=== PATIENT | male | born 1965 | race Caucasian/White ===

== ENCOUNTER 2017-09-18 12:59 | Emergency (ER) | payer MEDICARE ==
[2017-09-18 13:30] VITALS: BP 138/88
[2017-09-18] MEDS ORDERED: Ketorolac 60 MG/2 ML SDV IM ONE (13:57)
--- NOTE | 2017-09-18 14:01 | EDM.PDOC ---
ED HPI GENERAL MEDICAL PROBLEM - General Chief Complaint: ENT Problem Stated Complaint: ABCESS TOOTH Time Seen by Provider: 09/18/17 13:50 Source of Information: Reports: Patient, Family, RN Notes Reviewed History Limitations: Reports: No Limitations - History of Present Illness INITIAL COMMENTS - FREE TEXT/NARRATIVE: 51-year-old gentleman presents to the emergency department today with complaint of dental pain, he does have a broken tooth lower jaw left side which has increased pain over the last 24 hours he is not had any fever and he has had increased and facial swelling toothe Pain Score (Numeric/FACES): 10 - Related Data Allergies Allergy/AdvReac Type Severity Reaction Status Date / Time acetaminophen [From Percocet] Allergy Difficulty Verified 09/18/17 13:30 Breathing bacitracin Allergy Hives Verified 09/18/17 13:30 meperidine HCl [From Demerol] Allergy Difficulty Verified 09/18/17 13:30 Breathing methylprednisolone sodium Allergy Hives Verified 09/18/17 13:30 succinate [From Solu-Medrol] morphine Allergy Difficulty Verified 09/18/17 13:30 Breathing oxycodone HCl [From Percocet] Allergy Difficulty Verified 09/18/17 13:30 Breathing prednisone Allergy Hives Verified 09/18/17 13:30 Home Meds: Home Meds Amoxicillin 500 mg PO BID 09/18/17 [History] Past Medical History Gastrointestinal History: Reports: Other (See Below) Other Gastrointestinal History: esophageal bleed. - Past Surgical History HEENT Surgical History: Reports: Oral Surgery GI Surgical History: Reports: Appendectomy, Cholecystectomy, Esophageal Dilatation Musculoskeletal Surgical History: Reports: Carpal Tunnel Social & Family History - Tobacco Use Smoking Status *Q: Current Every Day Smoker Years of Tobacco use: 30 Packs/Tins Daily: 1 - Caffeine Use Caffeine Use: Reports: Coffee - Recreational Drug Use Recreational Drug Use: No Drug Use in Last 12 Months: Yes Recreational Drug Type: Reports: Marijuana/Hashish Recreational Drug Use Frequency: Weekly ED ROS ENT - Review of Systems Review Of Systems: See Below Constitutional: Denies: Fever, Chills HEENT: Reports: Dental Pain Respiratory: Reports: No Symptoms Cardiovascular: Reports: No Symptoms GI/Abdominal: Reports: No Symptoms ED EXAM, ENT - Physical Exam Exam: See Below Text/Narrative:: Mouth mucosa is moist and pink tooth #23 is fractured and broken very tender to the touch he does have some edema in the face in the gumline in that area, neck is supple no thyromegaly no tracheal deviation Exam Limited By: No Limitations General Appearance: Alert, Mild Distress Respiratory/Chest: No Respiratory Distress Course - Vital Signs Last Recorded V/S: Last Vital Signs Temp 96.3 F 09/18/17 13:31 Pulse 110 H 09/18/17 13:31 Resp 16 09/18/17 13:31 BP 138/88 09/18/17 13:31 Pulse Ox 95 09/18/17 13:31 - Orders/Labs/Meds Orders: Active Orders 24 hr Category Date Time Status Ketorolac [Toradol] Med 09/18/17 13:57 Once 60 mg IM ONETIME ONE Departure - Departure Time of Disposition: 14:00 Disposition: Home, Self-Care 01 Condition: Good Clinical Impression: Dental caries extending into dentin, Dental abscess - Discharge Information Referrals: Finesse Amos, GREENHOUSE ASSISTANT [Primary Care Provider] - Additional Instructions: Take full course of antibiotics please report to the dental clinic tomorrow morning at 8:15 use ibuprofen as needed for pain control - My Orders Last 24 Hours: My Active Orders 09/18/17 13:57 Ketorolac [Toradol] 60 mg IM ONETIME ONE - Assessment/Plan Last 24 Hours: My Active Orders 09/18/17 13:57 Ketorolac [Toradol] 60 mg IM ONETIME ONE Plan: Assessment Acuity = acute Site and laterality = dental abscess tooth #23 Etiology = probable bacterial cause Manifestations = pain Location of injury = Home Lab values = none Plan Started on amoxicillin 500 mg by mouth 3 times a day for 10 days, set up for dental referral on Tuesday at 8:15, provided Toradol for pain This note was dictated using [employer] recognition software please call with any questions on syntax or pedro.
== END 2017-09-18 14:15 | disposition home or self-care (01) ==
LOC: JP.ED 12:59
DX: K02.9 Dental caries, unspecified (principal); K04.7 Periapical abscess without sinus; F17.210 Nicotine dependence, cigarettes, uncomplicated; Z88.8 Allergy status to other drugs, medicaments and biological substances; Z88.5 Allergy status to narcotic agent; Z90.49 Acquired absence of other specified parts of digestive tract
CPT/HCPCS: 96372; 99282; 99283; J1885

== ENCOUNTER 2017-09-18 19:33 | Emergency (ER) | payer MEDICARE ==
[2017-09-18 19:56] VITALS: BP 142/93
[2017-09-18] MEDS ORDERED: Bupivacaine 0.5%/EPINEPHrine 1:200,000 1.8 ML Cartridge INJECT ONE ×2 (20:05→20:24)
--- NOTE | 2017-09-18 20:07 | EDM.PDOC ---
ED HPI GENERAL MEDICAL PROBLEM - General Chief Complaint: ENT Problem Stated Complaint: LEFT BOTTOM TOOTH PAIN Time Seen by Provider: 09/18/17 20:05 Source of Information: Reports: Patient, Old Records, RN History Limitations: Reports: No Limitations - History of Present Illness INITIAL COMMENTS - FREE TEXT/NARRATIVE: 51 yo male was here this morning for dental pain and got IM Toradol with OK relief. Since switching to oral Toradol is not getting adequate relief. Has been given a referral to see a dentist tomorrow. Is on antibiotics. No fever. Onset: Gradual Duration: Day(s): Location: Reports: Face Quality: Reports: Ache Severity: Severe Improves with: Reports: None Worsens with: Reports: Eating, Other (time) Context: Reports: Other (dental neglect) Associated Symptoms: Reports: No Other Symptoms Treatments HELIX COIL WINDER: Reports: Other (see below) (Toradol and antibiotics) - Related Data Allergies Allergy/AdvReac Type Severity Reaction Status Date / Time acetaminophen [From Percocet] Allergy Difficulty Verified 09/18/17 19:45 Breathing bacitracin Allergy Hives Verified 09/18/17 19:45 meperidine HCl [From Demerol] Allergy Difficulty Verified 09/18/17 19:45 Breathing methylprednisolone sodium Allergy Hives Verified 09/18/17 19:45 succinate [From Solu-Medrol] morphine Allergy Difficulty Verified 09/18/17 19:45 Breathing oxycodone HCl [From Percocet] Allergy Difficulty Verified 09/18/17 19:45 Breathing prednisone Allergy Hives Verified 09/18/17 19:45 Home Meds: Home Meds Amoxicillin 500 mg PO BID 09/18/17 [History] Past Medical History Gastrointestinal History: Reports: Other (See Below) Other Gastrointestinal History: esophageal bleed. - Past Surgical History HEENT Surgical History: Reports: Oral Surgery GI Surgical History: Reports: Appendectomy, Cholecystectomy, Esophageal Dilatation Musculoskeletal Surgical History: Reports: Carpal Tunnel Social & Family History - Tobacco Use Smoking Status *Q: Current Every Day Smoker Years of Tobacco use: 30 Packs/Tins Daily: 1 - Caffeine Use Caffeine Use: Reports: Coffee - Recreational Drug Use Recreational Drug Use: No Drug Use in Last 12 Months: Yes Recreational Drug Type: Reports: Marijuana/Hashish Recreational Drug Use Frequency: Weekly ED ROS ENT - Review of Systems Review Of Systems: See Below Constitutional: Reports: No Symptoms HEENT: Reports: Dental Pain Respiratory: Reports: No Symptoms Cardiovascular: Reports: No Symptoms GI/Abdominal: Reports: No Symptoms : Reports: No Symptoms Musculoskeletal: Reports: No Symptoms Skin: Reports: No Symptoms Neurological: Reports: No Symptoms ED EXAM, ENT - Physical Exam Exam: See Below Exam Limited By: No Limitations General Appearance: Alert, WD/WN, No Apparent Distress Eye Exam: Bilateral Eye: Normal Inspection Ears: Normal External Exam, Normal Canal, Hearing Grossly Normal Nose: Normal Inspection, Normal Mucousa, No Blood Mouth/Throat: Normal Lips, Normal Oropharynx, Dental Abcess, Dental Pain, Dental Tenderness, Other (very poor oral hygiene) Head: Atraumatic, Normocephalic Neck: Normal Inspection, Supple, Non-Tender Respiratory/Chest: No Respiratory Distress, Lungs Clear, Normal Breath Sounds, No Accessory Muscle Use Cardiovascular: Regular Rate, Rhythm, Tachycardia Extremities: Normal Inspection Neurological: Alert, Oriented, CN II-XII Intact, Normal Cognition, No Motor/ Sensory Deficits Psychiatric: Normal Affect, Normal Mood Skin: Warm, Dry, Intact, Normal Color, No Rash Course - Vital Signs Text/Narrative:: Was given a submandibular nerve block with 1.8 ml of 0.5% bupivacaine with epi- inadequate relief, so another dose was given with local infiltration around the affected tooth. Got better relief with this. Last Recorded V/S: Last Vital Signs Temp 36.8 C 09/18/17 19:55 Pulse 113 H 09/18/17 19:55 Resp 16 09/18/17 19:55 BP 142/93 H 09/18/17 19:55 Pulse Ox 93 L 09/18/17 19:55 - Orders/Labs/Meds Meds: Medications Discontinued Medications Generic Name Dose Route Start Last Admin Trade Name Gustavo PRN Reason Stop Dose Admin Bupivacaine HCl/Epinephrine Bitart 1.8 ml 09/18/17 20:05 09/18/17 20:15 Marcaine 0.5%/Epinephrine 1:200,000 INJECT 09/18/17 20:06 1.8 ml ONETIME ONE Administration Bupivacaine HCl/Epinephrine Bitart 1.8 ml 09/18/17 20:24 Marcaine 0.5%/Epinephrine 1:200,000 INJECT 09/18/17 20:25 ONETIME ONE Departure - Departure Time of Disposition: 20:50 Disposition: Home, Self-Care 01 Condition: Fair Clinical Impression: Dental caries extending into dentin, Dental abscess - Discharge Information Referrals: Finesse Amos OWNER SPA DIRECTOR [Primary Care Provider] - Forms: ED Department Discharge
== END 2017-09-18 21:02 | disposition home or self-care (01) ==
LOC: JP.ED 19:33
DX: K02.9 Dental caries, unspecified (principal); K04.7 Periapical abscess without sinus; F17.210 Nicotine dependence, cigarettes, uncomplicated; Z88.8 Allergy status to other drugs, medicaments and biological substances; Z88.5 Allergy status to narcotic agent; Z90.49 Acquired absence of other specified parts of digestive tract
CPT/HCPCS: 64400; 64450; 99283-25

== ENCOUNTER 2017-09-18 22:21 | Emergency (ER) | payer MEDICARE ==
[2017-09-18 22:38] VITALS: BP 164/113
[2017-09-18] MEDS ORDERED: Bupivacaine 0.5%/EPINEPHrine 1:200,000 1.8 ML Cartridge INJECT ONE (22:55)
[2017-09-18] MEDS ORDERED: Ketorolac 60 MG/2 ML SDV IM ONE (22:55)
[2017-09-18] MEDS ORDERED: hydrOXYzine HCl 25 MG Tab PO ONE (22:56)
--- NOTE | 2017-09-18 23:03 | EDM.PDOC ---
ED HPI GENERAL MEDICAL PROBLEM - General Chief Complaint: ENT Problem Stated Complaint: TOOTH PAIN WORSE Time Seen by Provider: 09/18/17 22:32 Source of Information: Reports: Patient, Family (so) History Limitations: Reports: No Limitations - History of Present Illness INITIAL COMMENTS - FREE TEXT/NARRATIVE: Dental pain; this is a 51 year old male presents to ER for his 3rd visit today with uncontrolled dental pain. He is currently taking Amoxicillin and Motrin. He is requesting a Toradol and dental injection for pain control. Has an appointment at 08:15 am. Onset: Gradual Duration: Day(s):, Waxing/Waning Quality: Reports: Same as Previous Episode, Sharp, Stabbing, Throbbing Improves with: Reports: Medication Worsens with: Reports: None Associated Symptoms: Reports: No Other Symptoms Treatments BLUE CRABBER: Reports: NSAIDS - Related Data Allergies Allergy/AdvReac Type Severity Reaction Status Date / Time acetaminophen [From Percocet] Allergy Difficulty Verified 09/18/17 19:45 Breathing bacitracin Allergy Hives Verified 09/18/17 19:45 meperidine HCl [From Demerol] Allergy Difficulty Verified 09/18/17 19:45 Breathing methylprednisolone sodium Allergy Hives Verified 09/18/17 19:45 succinate [From Solu-Medrol] morphine Allergy Difficulty Verified 09/18/17 19:45 Breathing oxycodone HCl [From Percocet] Allergy Difficulty Verified 09/18/17 19:45 Breathing prednisone Allergy Hives Verified 09/18/17 19:45 Home Meds: Home Meds Amoxicillin 500 mg PO BID 09/18/17 [History] Past Medical History Gastrointestinal History: Reports: Other (See Below) Other Gastrointestinal History: esophageal bleed. - Past Surgical History HEENT Surgical History: Reports: Oral Surgery GI Surgical History: Reports: Appendectomy, Cholecystectomy, Esophageal Dilatation Musculoskeletal Surgical History: Reports: Carpal Tunnel Social & Family History - Tobacco Use Smoking Status *Q: Current Every Day Smoker Years of Tobacco use: 30 Packs/Tins Daily: 1 - Caffeine Use Caffeine Use: Reports: Coffee - Recreational Drug Use Recreational Drug Use: No Drug Use in Last 12 Months: Yes Recreational Drug Type: Reports: Marijuana/Hashish Recreational Drug Use Frequency: Weekly - Living Situation & Occupation Living situation: Reports: with Significant Other ED ROS ENT - Review of Systems Review Of Systems: See Below Constitutional: Reports: Other (acute dental pain) HEENT: Reports: Dental Pain Respiratory: Reports: No Symptoms Cardiovascular: Reports: No Symptoms Endocrine: Reports: No Symptoms Skin: Reports: No Symptoms Neurological: Reports: No Symptoms Psychiatric: Reports: Agitation Hematologic/Lymphatic: Reports: No Symptoms Immunologic: Reports: No Symptoms ED EXAM, ENT - Physical Exam Exam: See Below Exam Limited By: No Limitations General Appearance: Alert, Moderate Distress (holding face in hands, moaning, restless ) Eye Exam: Bilateral Eye: Normal Inspection Ears: Normal External Exam Nose: Normal Inspection Mouth/Throat: Dental Abcess, Dental Pain, Dental Tenderness, Other (severe dental decay of all molars into gum line, gums with erythema, multi missing teeth) Head: Facial Swelling (left chin), Facial Tenderness (left chin) Neck: Normal Inspection, Supple, Non-Tender, Full Range of Motion Respiratory/Chest: No Respiratory Distress Neurological: Alert, Oriented Psychiatric: Anxious (restless, appears to be in acute pain) Skin: Warm, Dry, Intact, Normal Color, No Rash Lymphatic: No Adenopathy Course - Vital Signs Last Recorded V/S: Last Vital Signs Temp 37.0 C 09/18/17 22:55 Pulse 113 H 09/18/17 22:55 Resp 23 H 09/18/17 22:55 BP 164/113 H 09/18/17 22:55 Pulse Ox 94 L 09/18/17 22:55 - Orders/Labs/Meds Meds: Medications Discontinued Medications Generic Name Dose Route Start Last Admin Trade Name Gustavo PRN Reason Stop Dose Admin Bupivacaine HCl/Epinephrine Bitart 1.8 ml 09/18/17 22:55 09/18/17 23:03 Marcaine 0.5%/Epinephrine 1:200,000 INJECT 09/18/17 22:56 1.8 ml ONETIME ONE Administration Hydroxyzine HCl 25 mg 09/18/17 22:56 09/18/17 23:03 Atarax PO 09/18/17 22:57 25 mg ONETIME ONE Administration Ketorolac Tromethamine 60 mg 09/18/17 22:55 09/18/17 23:03 Toradol IM 09/18/17 22:56 60 mg ONETIME ONE Administration - Re-Assessments/Exams Free Text/Narrative Re-Assessment/Exam: 09/18/17 Dental Block -given Bupivacaine 0.5%/Eppi 1:200,000 1.8ml , left lower gum -immediate relief of pain. Patient appears calm and relaxed. Toradol 60mg IM and Hydroxyzine 25mg po now Mr. Bass's pain is controlled, ready for discharge to home, will follow up with Departure - Departure Time of Disposition: 23:26 Disposition: Home, Self-Care 01 Condition: Good Clinical Impression: Dental caries extending into dentin - Discharge Information Referrals: PCP,None [Primary Care Provider] - Forms: ED Department Discharge Care Plan Goals: Dental Pain -take Motrin 600mg every 6 hours, next dose due at 0500 am -keep Dental appointment at 08:15 AM -Soft diet, avoid hot or cold liquids. room temperatures food and fluids. return to clinic or er if not improved or symptoms worsen. - Problem List & Annotations (1) Dental caries extending into dentin SNOMED Code(s): 132196520 Code(s): K02.62 - DENTAL CARIES ON SMOOTH SURFACE PENETRATING INTO DENTIN Status: Acute Priority: Medium Current Visit: Yes - Problem List Review Problem List Initiated/Reviewed/Updated: Yes - Assessment/Plan Plan: Dental Pain -take Motrin 600mg every 6 hours, next dose due at 0500 am -keep Dental appointment at 08:15 AM -Soft diet, avoid hot or cold liquids. room temperatures food and fluids. return to clinic or er if not improved or symptoms worsen.
== END 2017-09-18 23:29 | disposition home or self-care (01) ==
LOC: JP.ED 22:21
DX: K02.9 Dental caries, unspecified (principal); F17.210 Nicotine dependence, cigarettes, uncomplicated; Z88.8 Allergy status to other drugs, medicaments and biological substances; Z90.49 Acquired absence of other specified parts of digestive tract
CPT/HCPCS: 64400; 64450; 96372; 99282; 99283; A9270; J1885

== ENCOUNTER 2018-07-12 14:42 | Emergency (ER) | payer MEDICARE, MEDICAID ==
[2018-07-12 15:02] VITALS: BP 137/91
[2018-07-12] MEDS ORDERED: Albuterol/Ipratropium 3.0-0.5 MG/3 ML Neb Soln NEB ONE (15:42)
--- NOTE | 2018-07-12 15:44 | EDM.PDOC ---
<Amanda Flores - Last Filed: 07/12/18 18:08> ED HPI GENERAL MEDICAL PROBLEM - General Chief Complaint: Respiratory Problem Stated Complaint: BREATHING DIFFICULTY Time Seen by Provider: 07/12/18 15:43 Source of Information: Reports: Patient History Limitations: Reports: No Limitations - History of Present Illness INITIAL COMMENTS - FREE TEXT/NARRATIVE: pt has a history of copd. He has had increased sob during thr nite to the point that he could not rest. Onset: Gradual Duration: Day(s):, Other ( He was seen yesterday at the clinic and he was placed on doxycyline. ) Location: Reports: Chest Associated Symptoms: Reports: Cough, Shortness of Breath - Related Data Allergies Allergy/AdvReac Type Severity Reaction Status Date / Time acetaminophen [From Percocet] Allergy Difficulty Verified 09/18/17 19:45 Breathing bacitracin Allergy Hives Verified 09/18/17 19:45 meperidine HCl [From Demerol] Allergy Difficulty Verified 09/18/17 19:45 Breathing methylprednisolone sodium Allergy Hives Verified 09/18/17 19:45 succinate [From Solu-Medrol] morphine Allergy Difficulty Verified 09/18/17 19:45 Breathing oxycodone HCl [From Percocet] Allergy Difficulty Verified 09/18/17 19:45 Breathing prednisone Allergy Hives Verified 09/18/17 19:45 Home Meds: Home Meds Albuterol [Ventolin HFA] 1 - 2 puff INH Q4H PRN 07/12/18 [History] Doxycycline Monohydrate 100 mg PO BID 07/12/18 [History] Tiotropium [Spiriva Handihaler] 18 mcg INH DAILY 07/12/18 [History] Past Medical History HEENT History: Reports: Other (See Below) Other HEENT History: dental caries Respiratory History: Reports: COPD Gastrointestinal History: Reports: Other (See Below) Other Gastrointestinal History: esophageal bleed. - Infectious Disease History Infectious Disease History: Reports: Chicken Pox - Past Surgical History HEENT Surgical History: Reports: Oral Surgery GI Surgical History: Reports: Appendectomy, Cholecystectomy, Esophageal Dilatation Musculoskeletal Surgical History: Reports: Carpal Tunnel Social & Family History - Tobacco Use Years of Tobacco use: 32 Packs/Tins Daily: 0.1 - Caffeine Use Caffeine Use: Reports: Coffee - Recreational Drug Use Recreational Drug Use: No - Living Situation & Occupation Living situation: Reports: with Significant Other ED ROS GENERAL - Review of Systems Review Of Systems: See Below Constitutional: Reports: Decreased Appetite, Weight Loss HEENT: Reports: No Symptoms Respiratory: Reports: Shortness of Breath, Wheezing, Cough, Other (pt continues to smoke a few cigarettes per day) Cardiovascular: Reports: No Symptoms Endocrine: Reports: No Symptoms GI/Abdominal: Reports: No Symptoms : Reports: No Symptoms Musculoskeletal: Reports: No Symptoms Skin: Reports: No Symptoms ED EXAM, GENERAL - Physical Exam Exam: See Below Free Text/Narrative:: pt arrived with increased sob. He has had a very difficult nite. He has a history of copd. He has been placed on doxycyline yesterday. He is allergic to steriods. Exam Limited By: No Limitations General Appearance: Alert, Moderate Distress Ears: Normal TMs Nose: Normal Inspection Throat/Mouth: Normal Inspection Head: Atraumatic Neck: Normal Inspection Respiratory/Chest: Respiratory Distress, Decreased Breath Sounds, Wheezing Cardiovascular: Regular Rate, Rhythm, Tachycardia GI/Abdominal: Soft, Non-Tender (Male) Exam: Deferred Rectal (Males) Exam: Deferred Back Exam: Normal Inspection Extremities: Normal Inspection Neurological: Alert, Normal Cognition Psychiatric: Depressed Mood Course - Vital Signs Last Recorded V/S: Last Vital Signs Temp 96.5 F 07/12/18 15:11 Pulse 121 H 07/12/18 15:11 Resp 16 07/12/18 15:11 BP 137/91 H 07/12/18 15:11 Pulse Ox 94 L 07/12/18 15:11 - Orders/Labs/Meds Orders: Active Orders 24 hr Category Date Time Status Dietary Supplements [RC] BIDMEALS Care 07/12/18 18:07 Active RT Aerosol Therapy [RC] ASDIRECTED Care 07/12/18 15:42 Active RT Aerosol Therapy [RC] ASDIRECTED Care 07/12/18 17:23 Active RT Aerosol Therapy [RC] ASDIRECTED Care 07/12/18 18:10 Active Chest 2V [CR] Stat Exams 07/12/18 15:41 Taken Chest w Cont [CT] Stat Exams 07/12/18 16:45 Taken Labs: Laboratory Tests 07/12/18 07/12/18 07/12/18 Range/Units 15:41 15:42 15:42 WBC 11.0 (4.5-11.0) K/uL RBC 4.91 (4.30-5.90) M/uL Hgb 14.4 (12.0-15.0) g/dL Hct 44.4 (40.0-54.0) % MCV 90 (80-98) fL MCH 29 (27-31) pg MCHC 32 (32-36) % Plt Count 407 H (150-400) K/uL Neut % (Auto) 64 (36-66) % Lymph % (Auto) 21 L (24-44) % Bullock % (Auto) 10 H (2-6) % Eos % (Auto) 5 H (2-4) % Baso % (Auto) 1 (0-1) % Puncture Site Left radial ABG pH 7.463 H (7.350-7.450) ABG pCO2 36.7 (35.0-42.0) mmHg ABG pO2 74.6 L (75.0-100.0) mmHg ABG HCO3 25.9 (22.0-26.0) mmol/L ABG Total CO2 22.3 L (23.0-27.0) mmol/L ABG O2 Saturation 95.2 (95.0-98.0) % ABG O2 Content 19.2 (15.0-23.0) %vol ABG Base Excess 2.7 mm/L ABG Hemoglobin 14.6 (13.5-18.0) g/dL ABG Oxyhemoglobin 93.4 % ABG Carboxyhemoglobin 1.4 (0.0-1.6) % ABG Methemoglobin 0.5 % Yaron Test Passed O2 Delivery Device Room air Sodium 139 L (140-148) mmol/L Potassium 3.9 (3.6-5.2) mmol/L Chloride 101 (100-108) mmol/L Carbon Dioxide 30 (21-32) mmol/L Anion Gap 11.9 (5.0-14.0) mmol/L BUN 16 (7-18) mg/dL Creatinine 0.9 (0.8-1.3) mg/dL Est Cr Clr Drug Dosing 69.94 mL/min Estimated GFR (MDRD) > 60 (>60) Glucose 91 (74-106) mg/dL Calcium 9.1 (8.5-10.1) mg/dL Total Bilirubin 0.2 (0.2-1.0) mg/dL AST 14 L (15-37) U/L ALT 19 (12-78) U/L Alkaline Phosphatase 117 H (46-116) U/L C-Reactive Protein (0.0-0.3) mg/dL NT-Pro-B Natriuret Pep (5-125) pg/mL Total Protein 7.7 (6.4-8.2) g/dL Albumin 3.3 L (3.4-5.0) g/dL Globulin 4.4 H (2.3-3.5) g/dL Albumin/Globulin Ratio 0.8 L (1.2-2.2) TSH, Ultra Sensitive (0.358-3.740) uIU/mL 07/12/18 07/12/18 07/12/18 Range/Units 15:42 15:56 16:02 WBC (4.5-11.0) K/uL RBC (4.30-5.90) M/uL Hgb (12.0-15.0) g/dL Hct (40.0-54.0) % MCV (80-98) fL MCH (27-31) pg MCHC (32-36) % Plt Count (150-400) K/uL Neut % (Auto) (36-66) % Lymph % (Auto) (24-44) % Bullock % (Auto) (2-6) % Eos % (Auto) (2-4) % Baso % (Auto) (0-1) % Puncture Site ABG pH (7.350-7.450) ABG pCO2 (35.0-42.0) mmHg ABG pO2 (75.0-100.0) mmHg ABG HCO3 (22.0-26.0) mmol/L ABG Total CO2 (23.0-27.0) mmol/L ABG O2 Saturation (95.0-98.0) % ABG O2 Content (15.0-23.0) %vol ABG Base Excess mm/L ABG Hemoglobin (13.5-18.0) g/dL ABG Oxyhemoglobin % ABG Carboxyhemoglobin (0.0-1.6) % ABG Methemoglobin % Yaron Test O2 Delivery Device Sodium (140-148) mmol/L Potassium (3.6-5.2) mmol/L Chloride (100-108) mmol/L Carbon Dioxide (21-32) mmol/L Anion Gap (5.0-14.0) mmol/L BUN (7-18) mg/dL Creatinine (0.8-1.3) mg/dL Est Cr Clr Drug Dosing mL/min Estimated GFR (MDRD) (>60) Glucose (74-106) mg/dL Calcium (8.5-10.1) mg/dL Total Bilirubin (0.2-1.0) mg/dL AST (15-37) U/L ALT (12-78) U/L Alkaline Phosphatase (46-116) U/L C-Reactive Protein 2.49 H (0.0-0.3) mg/dL NT-Pro-B Natriuret Pep 36 (5-125) pg/mL Total Protein (6.4-8.2) g/dL Albumin (3.4-5.0) g/dL Globulin (2.3-3.5) g/dL Albumin/Globulin Ratio (1.2-2.2) TSH, Ultra Sensitive 0.664 (0.358-3.740) uIU/mL Meds: Medications Discontinued Medications Generic Name Dose Route Start Last Admin Trade Name Freq PRN Reason Stop Dose Admin Albuterol 2.5 mg 07/12/18 17:23 07/12/18 17:37 Proventil [facility] 07/12/18 17:24 2.5 mg ONETIME ONE Administration Albuterol 2.5 mg 07/12/18 18:09 07/12/18 18:41 Proventil [facility] 07/12/18 18:10 2.5 mg ONETIME ONE Administration Albuterol/Ipratropium 3 ml 07/12/18 15:42 07/12/18 15:49 Duoneb 3.0-0.5 Mg/3 Ml [facility] 07/12/18 15:43 3 ml ONETIME ONE Administration Sodium Chloride 80 mls @ 3 mls/sec 07/12/18 17:00 07/12/18 17:08 Normal Saline IV 3 mls/sec ASDIRECTED JAIRO Administration Ceftriaxone Sodium 1 gm/ 50 mls @ 100 mls/hr 07/12/18 18:06 07/12/18 18:17 Sodium Chloride IV 07/12/18 18:35 100 mls/hr ONETIME ONE Administration Iopamidol 100 ml 07/12/18 17:00 07/12/18 17:08 Isovue-300 (61%) IV 100 ml . DIRECTED JAIRO Administration Sodium Chloride 10 ml 07/12/18 16:50 07/12/18 17:08 Saline Flush FLUSH 10 ml ASDIRECTED PRN Administration Keep Vein Open - Re-Assessments/Exams Free Text/Narrative Re-Assessment/Exam: 07/12/18 17:42 wbc is 11,000. His crp is elevated. His blood gases do not show a high co2. His 02 is low. A cat scan of th chest was done. Free Text/Narrative Re-Assessment/Exam: 07/12/18 18:08 cat scan shows some nodular densities which may be infectious. Will give iv antibiotic. He has had 2 nebs and he is improving. Departure - Departure Disposition: Home, Self-Care 01 Clinical Impression: Pneumonia Qualifiers: Pneumonia type: due to unspecified organism Laterality: right Lung location: lower lobe of lung Qualified Code(s): J18.1 - Lobar pneumonia, unspecified organism - Discharge Information Instructions: Community-Acquired Pneumonia, Adult Referrals: Finesse Amos, HOTEL MAINTENANCE WORKER [Primary Care Provider] - Forms: ED Department Discharge Care Plan Goals: albuterol nebs q4h during the waking hours, send a nebulizer home with the pt. albuterol premixed , cont doxycyline, follow up with Finesse Hammer in 3-4 days, return tomorrow for another IV antibiotic dose as discussed. <Stanislav Coughlin - Last Filed: 07/12/18 19:01> Departure - Departure Time of Disposition: 18:58 Condition: Good
[2018-07-12] MEDS ORDERED: Sodium Chloride 0.9% 10 ML Syringe FLUSH PRN (16:50)
[2018-07-12] MEDS ORDERED: Sodium Chloride 0.9% 80 ML IV SCH (17:00)
[2018-07-12] MEDS ORDERED: Iopamidol 612 MG/ML 100 ML Bottle IV SCH (17:00)
[2018-07-12] MEDS ORDERED: Albuterol 0.083% 2.5 MG/3 ML Neb Soln NEB ONE ×2 (17:23→18:09)
[2018-07-12] MEDS ORDERED: cefTRIAXone 1 GM in Sodium Chloride 0.9% 50 ML IV ONE (18:06)
== END 2018-07-12 18:58 | disposition home or self-care (01) ==
LOC: JP.ED 14:42
DX: J18.1 Lobar pneumonia, unspecified organism (principal); F17.210 Nicotine dependence, cigarettes, uncomplicated; J44.9 Chronic obstructive pulmonary disease, unspecified; Z79.899 Other long term (current) drug therapy; Z88.6 Allergy status to analgesic agent; Z88.8 Allergy status to other drugs, medicaments and biological substances; Z88.1 Allergy status to other antibiotic agents; Z88.5 Allergy status to narcotic agent
CPT/HCPCS: 36415; 36600; 71046; 71260; 80053; 82803; 83880; 84443; 85025; 86140; 94640; 96365; 99285; J0696; J7030; J7050; Q9967; J7620-GY

== ENCOUNTER 2018-10-28 13:06 | Emergency (ER) | payer MEDICARE, MEDICAID ==
[2018-10-28 13:28] VITALS: BP 138/75
--- NOTE | 2018-10-28 13:54 | EDM.PDOC ---
ED HPI GENERAL MEDICAL PROBLEM - General Chief Complaint: Abdominal Pain Stated Complaint: BACK & LEFT LUNG PAIN Time Seen by Provider: 10/28/18 13:35 Source of Information: Reports: Patient, Old Records, RN History Limitations: Reports: No Limitations - History of Present Illness INITIAL COMMENTS - FREE TEXT/NARRATIVE: 52 yo male smoker was here in June and had an abnormal chest CT was was instructed to follow up at the clinic. He eventually did so and now has a PET scan scheduled to be performed in [place] on 10/31. More recently over the past week he has not had a BM even with the use of Dulcolax and has had intermittent vomiting. No black or bloody stools. No fever. No hematemesis. Has experienced weight loss. Has some epigastric pain. Onset: Gradual Onset Date: 10/21/18 Duration: Week(s): (1), Constant, Waxing/Waning Location: Reports: Abdomen (upper) Quality: Reports: Ache Severity: Moderate Improves with: Reports: None Worsens with: Reports: Other (time) Context: Reports: Other (See HPI) Associated Symptoms: Reports: Nausea/Vomiting. Denies: Fever/Chills Treatments [employer] WORKER: Reports: Other (see below) (Dulcolax) - Related Data Allergies Allergy/AdvReac Type Severity Reaction Status Date / Time acetaminophen [From Percocet] Allergy Difficulty Verified 10/28/18 13:36 Breathing bacitracin Allergy Hives Verified 10/28/18 13:36 meperidine HCl [From Demerol] Allergy Difficulty Verified 10/28/18 13:36 Breathing methylprednisolone sodium Allergy Hives Verified 10/28/18 13:36 succinate [From Solu-Medrol] morphine Allergy Difficulty Verified 10/28/18 13:36 Breathing oxycodone HCl [From Percocet] Allergy Difficulty Verified 10/28/18 13:36 Breathing prednisone Allergy Hives Verified 10/28/18 13:36 Home Meds: Home Meds Albuterol [Ventolin HFA] 1 - 2 puff INH Q4H PRN 07/12/18 [History] Tiotropium [Spiriva Handihaler] 18 mcg INH DAILY 07/12/18 [History] Cyclobenzaprine [Flexeril] 10 mg PO BID 10/28/18 [History] Past Medical History HEENT History: Reports: Other (See Below) Other HEENT History: dental caries Respiratory History: Reports: COPD Gastrointestinal History: Reports: Other (See Below) Other Gastrointestinal History: esophageal bleed. - Infectious Disease History Infectious Disease History: Reports: Chicken Pox - Past Surgical History HEENT Surgical History: Reports: Oral Surgery GI Surgical History: Reports: Appendectomy, Cholecystectomy, Esophageal Dilatation Musculoskeletal Surgical History: Reports: Carpal Tunnel Social & Family History - Tobacco Use Smoking Status *Q: Current Every Day Smoker Years of Tobacco use: 30 Packs/Tins Daily: 0.1 - Caffeine Use Caffeine Use: Reports: Coffee - Recreational Drug Use Recreational Drug Use: No - Living Situation & Occupation Living situation: Reports: with Significant Other ED ROS GENERAL - Review of Systems Review Of Systems: See Below Constitutional: Reports: No Symptoms HEENT: Reports: No Symptoms Respiratory: Reports: Pleuritic Chest Pain. Denies: Shortness of Breath, Wheezing, Cough, Sputum, Hemoptysis Cardiovascular: Reports: No Symptoms Endocrine: Reports: Other (weight loss) GI/Abdominal: Reports: Abdominal Pain, Nausea, Vomiting. Denies: No Symptoms, Black Stool, Bloody Stool, Diarrhea, Decreased Appetite, Distension, Flatus, Hematemesis, Hematochezia, Melena : Reports: No Symptoms Musculoskeletal: Reports: No Symptoms Skin: Reports: No Symptoms Neurological: Reports: No Symptoms Psychiatric: Reports: No Symptoms ED EXAM, GI/ABD - Physical Exam Exam: See Below Exam Limited By: No Limitations General Appearance: Alert, No Apparent Distress, Thin Eyes: Bilateral: Normal Appearance Ears: Normal External Exam, Normal Canal, Hearing Grossly Normal Nose: Normal Inspection, No Blood Throat/Mouth: Normal Inspection, Normal Lips, Normal Oropharynx, Normal Voice, No Airway Compromise Head: Atraumatic, Normocephalic Neck: Normal Inspection Respiratory/Chest: No Respiratory Distress, Lungs Clear, Normal Breath Sounds, No Accessory Muscle Use Cardiovascular: Regular Rate, Rhythm, No Edema GI/Abdominal Exam: Normal Bowel Sounds, Soft, No Distention, Tender (epigastric area). No: Non-Tender, Guarding, Rigid, Rebound Back Exam: Normal Inspection. No: CVA Tenderness (R), CVA Tenderness (L) Extremities: Normal Inspection, Normal Range of Motion, Non-Tender, No Pedal Edema Neurological: Alert, Oriented, CN II-XII Intact, Normal Cognition, No Motor/ Sensory Deficits Psychiatric: Normal Affect, Normal Mood Skin Exam: Warm, Dry, Intact, Normal Color, No Rash Course - Vital Signs Text/Narrative:: Orthostatic vitals-borderline Last Recorded V/S: Last Vital Signs Temp 35.7 C 10/28/18 13:35 Pulse 95 10/28/18 13:35 Resp 21 H 10/28/18 13:35 BP 138/75 10/28/18 13:35 Pulse Ox 95 10/28/18 13:35 Orthostatic Blood Pressure [ 117/76 Standing] Orthostatic Blood Pressure [ 124/88 Sitting] Orthostatic Blood Pressure [ 138/86 Supine] - Orders/Labs/Meds Orders: Active Orders 24 hr Category Date Time Status Enema [RC] ASDIRECTED Care 10/28/18 14:29 Active Orthostatic Vital Signs [RC] ASDIRECTED Care 10/28/18 13:48 Active Labs: Laboratory Tests 10/28/18 Range/Units 14:39 Sodium 137 L (140-148) mmol/L Potassium 4.2 (3.6-5.2) mmol/L Chloride 97 L (100-108) mmol/L Carbon Dioxide 32 (21-32) mmol/L Anion Gap 12.2 (5.0-14.0) mmol/L BUN 15 (7-18) mg/dL Creatinine 1.0 (0.8-1.3) mg/dL Est Cr Clr Drug Dosing 61.04 mL/min Estimated GFR (MDRD) > 60 (>60) Glucose 103 (74-106) mg/dL Calcium 9.3 (8.5-10.1) mg/dL Total Bilirubin 0.1 L (0.2-1.0) mg/dL AST 17 (15-37) U/L ALT 23 (12-78) U/L Alkaline Phosphatase 133 H (46-116) U/L Total Protein 7.9 (6.4-8.2) g/dL Albumin 3.1 L (3.4-5.0) g/dL Globulin 4.8 H (2.3-3.5) g/dL Albumin/Globulin Ratio 0.7 L (1.2-2.2) Meds: Medications Discontinued Medications Generic Name Dose Route Start Last Admin Trade Name Freq PRN Reason Stop Dose Admin Lactated Ringer's 1,000 mls @ 1,000 mls/hr 10/28/18 14:28 10/28/18 14:47 Ringers, Lactated IV 10/28/18 15:27 1,000 mls/hr BOLUS ONE Administration Metoclopramide HCl 10 mg 10/28/18 14:28 10/28/18 14:47 Reglan IVPUSH 10/28/18 14:29 10 mg ONETIME ONE Administration Polyethylene Glycol 34 gm 10/28/18 14:28 10/28/18 14:47 Miralax PO 10/28/18 14:29 34 gm ONETIME ONE Administration - Radiology Interpretation Free Text/Narrative:: Abdominal X-ray-large amt of stool present - Re-Assessments/Exams Free Text/Narrative Re-Assessment/Exam: 10/28/18 16:30 Good relief and good results with enemas. Departure - Departure Time of Disposition: 16:31 Disposition: Home, Self-Care 01 Condition: Good Clinical Impression: Constipation Qualifiers: Constipation type: unspecified constipation type Qualified Code(s): K59.00 - Constipation, unspecified - Discharge Information *PRESCRIPTION DRUG MONITORING PROGRAM REVIEWED*: No *COPY OF PRESCRIPTION DRUG MONITORING REPORT IN PATIENT NELLY: No Instructions: Constipation, Adult, High-Fiber Diet Referrals: Finesse Amos NP [Primary Care Provider] - Forms: ED Department Discharge Additional Instructions: Eat a high fiber diet and drink ample fluids. Take Miralax(generic) once or twice daily. F/U with your doctor to continue your work up. - My Orders Last 24 Hours: My Active Orders 10/28/18 13:48 Orthostatic Vital Signs [RC] ASDIRECTED 10/28/18 14:29 Enema [RC] ASDIRECTED - Assessment/Plan Last 24 Hours: My Active Orders 10/28/18 13:48 Orthostatic Vital Signs [RC] ASDIRECTED 10/28/18 14:29 Enema [RC] ASDIRECTED
[2018-10-28] MEDS ORDERED: Polyethylene Glycol 3350 Powder 17 GM Packet PO ONE (14:28)
[2018-10-28] MEDS ORDERED: Metoclopramide 10 MG/2 ML SDV IVPUSH ONE (14:28)
[2018-10-28] MEDS ORDERED: Lactated Ringers 1,000 ML IV ONE (14:28)
--- NOTE | 2018-10-28 15:56 | CRLCR ---
INDICATION: Vomiting, constipation TECHNIQUE: Portable supine frontal radiograph of the abdomen COMPARISON: None FINDINGS AND IMPRESSION: Nonobstructive bowel gas pattern. There is a moderate amount of stool throughout the colon. Right upper quadrant surgical clips. Dictated by Eden Gallego MD @ 10/28/2018 3:54:41 PM Dictated by: Eden Gallego MD @ 10/28/2018 15:54:49 (Electronically Signed)
== END 2018-10-28 16:43 | disposition home or self-care (01) ==
LOC: JP.ED 13:06
DX: K59.00 Constipation, unspecified (principal); J44.9 Chronic obstructive pulmonary disease, unspecified; F17.210 Nicotine dependence, cigarettes, uncomplicated; Z88.8 Allergy status to other drugs, medicaments and biological substances; Z79.899 Other long term (current) drug therapy
CPT/HCPCS: 36415; 74018; 80053; 96361; 96374; 99283; A9270; J2765; J7120; 99284

== ENCOUNTER 2018-11-18 19:32 | Emergency (ER) | payer MEDICARE, MEDICAID ==
[2018-11-18] MEDS ORDERED: HYDROmorphone 1 MG/ML Syringe IVPUSH ONE ×2 (20:40→21:16)
[2018-11-18] MEDS ORDERED: Ondansetron 4 MG/2 ML SDV IVPUSH ONE (20:40)
[2018-11-18] MEDS ORDERED: Sodium Chloride 0.9% 1,000 ML IV SCH (20:45)
--- NOTE | 2018-11-18 21:17 | EDM.PDOC ---
ED HPI GENERAL MEDICAL PROBLEM - General Chief Complaint: Abdominal Pain Stated Complaint: ABD PAIN Time Seen by Provider: 11/18/18 20:15 Source of Information: Reports: Patient History Limitations: Reports: No Limitations - History of Present Illness INITIAL COMMENTS - FREE TEXT/NARRATIVE: 52 yo presents to ER with upper ABD pain. He recently had PET scan at [facility] resulting in Dx of likely primary lung malignancy 2.6 cm right lower lobe and a 6 cm mass in the gastrohepatic ligament. He does have lung mass biopsy scheduled for latter this month. He has been unable to eat because of pain. HE has had intermittent diarrhea and constipation. afebrile. He feels that his SOB has been controlled. Abdominal Pain Score (Numeric/FACES): 8 - Related Data Allergies Allergy/AdvReac Type Severity Reaction Status Date / Time acetaminophen [From Percocet] Allergy Difficulty Verified 11/18/18 19:56 Breathing bacitracin Allergy Hives Verified 11/18/18 19:56 meperidine HCl [From Demerol] Allergy Difficulty Verified 11/18/18 19:56 Breathing methylprednisolone sodium Allergy Hives Verified 11/18/18 19:56 succinate [From Solu-Medrol] morphine Allergy Difficulty Verified 11/18/18 19:56 Breathing oxycodone HCl [From Percocet] Allergy Difficulty Verified 11/18/18 19:56 Breathing prednisone Allergy Hives Verified 11/18/18 19:56 Home Meds: Home Meds Albuterol [Ventolin HFA] 1 - 2 puff INH Q4H PRN 07/12/18 [History] Tiotropium [Spiriva Handihaler] 18 mcg INH DAILY 07/12/18 [History] Cyclobenzaprine [Flexeril] 10 mg PO BID 10/28/18 [History] Albuterol Sulfate 0.63 mg IH Q6H PRN 11/18/18 [History] Past Medical History HEENT History: Reports: Other (See Below) Other HEENT History: dental caries Respiratory History: Reports: COPD, Other (See Below) Other Respiratory History: R lower lobe CA October 2018. Gastrointestinal History: Reports: Other (See Below) Other Gastrointestinal History: esophageal bleed. 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 Psychiatric History: Reports: Anxiety, Depression Oncologic (Cancer) History: Reports: Lung, Other (See Below) Other Oncologic History: hepatic - Infectious Disease History Infectious Disease History: Reports: Chicken Pox - Past Surgical History HEENT Surgical History: Reports: Oral Surgery GI Surgical History: Reports: Appendectomy, Cholecystectomy, Esophageal Dilatation Musculoskeletal Surgical History: Reports: Carpal Tunnel Social & Family History - Tobacco Use Smoking Status *Q: Current Every Day Smoker Years of Tobacco use: 25 Packs/Tins Daily: 1 Used Tobacco, but Quit: No Second Hand Smoke Exposure: Yes - Caffeine Use Caffeine Use: Reports: None - Recreational Drug Use Recreational Drug Use: No - Living Situation & Occupation Living situation: Reports: with Significant Other ED ROS GENERAL - Review of Systems Review Of Systems: See Below Constitutional: Denies: Fever, Chills Respiratory: Denies: Shortness of Breath, Wheezing Cardiovascular: Denies: Chest Pain GI/Abdominal: Reports: Abdominal Pain, Anorexia, Constipation, Diarrhea, Decreased Appetite, Difficulty Swallowing. Denies: Bloody Stool Skin: Reports: Pallor Neurological: Denies: Confusion, Dizziness ED EXAM, GI/ABD - Physical Exam Exam: See Below Exam Limited By: No Limitations General Appearance: Alert, WD/WN, Moderate Distress Head: Atraumatic, Normocephalic Neck: Normal Inspection, Supple, Non-Tender, Full Range of Motion. No: Lymphadenopathy (R), Lymphadenopathy (L) Respiratory/Chest: No Respiratory Distress, Lungs Clear, Decreased Breath Sounds. No: Rhonchi, Wheezing Cardiovascular: No Murmur, No Rub, Tachycardia GI/Abdominal Exam: Soft, Tender Neurological: Alert, Oriented Psychiatric: Normal Affect, Normal Mood Skin Exam: Warm, Dry, Intact, Pallor Course - Vital Signs Last Recorded V/S: Last Vital Signs Temp 36.8 C 11/18/18 20:06 Pulse 115 H 11/18/18 22:27 Resp 14 11/18/18 22:27 BP 112/79 11/18/18 22:27 Pulse Ox 94 L 11/18/18 22:27 - Orders/Labs/Meds Orders: Active Orders 24 hr Category Date Time Status EKG Documentation Completion [RC] ASDIRECTED Care 11/18/18 21:28 Active Sodium Chloride 0.9% [Normal Saline] 1,000 ml Med 11/18/18 20:45 Active IV ASDIRECTED EKG 12 Lead [EK] Routine Ther 11/18/18 21:27 Ordered Medication Orders Sodium Chloride (Normal Saline) 1,000 mls @ 500 mls/hr IV ASDIRECTED JAIRO Last Admin: 11/18/18 20:46 Dose: 500 mls/hr Labs: Laboratory Tests 11/18/18 11/18/18 11/18/18 Range/Units 20:45 20:48 20:48 WBC 20.7 H (4.5-11.0) K/uL RBC 4.71 (4.30-5.90) M/uL Hgb 13.1 (12.0-15.0) g/dL Hct 41.9 (40.0-54.0) % MCV 89 (80-98) fL MCH 28 (27-31) pg MCHC 31 L (32-36) % Plt Count 475 H (150-400) K/uL Neut % (Auto) 77 H (36-66) % Lymph % (Auto) 13 L (24-44) % Smyth % (Auto) 9 H (2-6) % Eos % (Auto) 2 (2-4) % Baso % (Auto) 0 (0-1) % Sodium 137 L (140-148) mmol/L Potassium 4.1 (3.6-5.2) mmol/L Chloride 98 L (100-108) mmol/L Carbon Dioxide 30 (21-32) mmol/L Anion Gap 13.1 (5.0-14.0) mmol/L BUN 17 (7-18) mg/dL Creatinine 0.8 (0.8-1.3) mg/dL Est Cr Clr Drug Dosing 76.74 mL/min Estimated GFR (MDRD) > 60 (>60) Glucose 106 (74-106) mg/dL Calcium 9.1 (8.5-10.1) mg/dL Total Bilirubin 0.2 D (0.2-1.0) mg/dL AST 19 (15-37) U/L ALT 17 (12-78) U/L Alkaline Phosphatase 125 H (46-116) U/L CK-MB (CK-2) 0.3 (0-3.6) mg/mL Troponin I < 0.017 (0.000-0.056) ng/mL Total Protein 8.1 (6.4-8.2) g/dL Albumin 3.3 L (3.4-5.0) g/dL Globulin 4.8 H (2.3-3.5) g/dL Albumin/Globulin Ratio 0.7 L (1.2-2.2) Meds: Medications Generic Name Dose Route Start Last Admin Trade Name Gustavo PRN Reason Stop Dose Admin Sodium Chloride 1,000 mls @ 500 mls/hr 11/18/18 20:45 11/18/18 20:46 Normal Saline IV 500 mls/hr ASDIRECTED JAIRO Administration Discontinued Medications Generic Name Dose Route Start Last Admin Trade Name Gustavo PRN Reason Stop Dose Admin Diphenhydramine HCl 25 mg 11/18/18 21:26 Benadryl IVPUSH 11/18/18 21:27 ONETIME ONE Hydromorphone HCl 1 mg 11/18/18 20:40 11/18/18 20:51 Dilaudid IVPUSH 11/18/18 20:41 1 mg ONETIME ONE Administration Hydromorphone HCl 1 mg 11/18/18 21:16 11/18/18 21:23 Dilaudid IVPUSH 11/18/18 21:17 1 mg ONETIME ONE Administration Lorazepam 1 mg 11/18/18 21:25 11/18/18 21:55 Ativan IVPUSH 11/18/18 21:26 1 mg ONETIME ONE Administration Ondansetron HCl 4 mg 11/18/18 20:40 11/18/18 20:54 Zofran IVPUSH 11/18/18 20:41 4 mg ONETIME ONE Administration Pantoprazole Sodium 80 mg 11/18/18 21:30 Protonix Iv IVPUSH .BOLUS JAIRO - Re-Assessments/Exams Free Text/Narrative Re-Assessment/Exam: 11/18/18 22:05 relief from pain with IV pain medication. As I was explaining the results of the PET from my review of the [facility] records pt developed chest squeezing and tachycardia he does have hx of anxiety. He did not become SOB or sweaty during this episode and it did resolved with deep breathing and additional pain management. 11/18/18 23:12 pain managed. pt resting comfortably. trp neg and ckmb also negative. extensive discussion had with pt and regarding PET results and expectations of their up coming biopsy appt Departure - Departure Time of Disposition: 23:18 Disposition: Home, Self-Care 01 Condition: Fair Clinical Impression: Lung cancer Qualifiers: Laterality: right Lung location: lower lobe of lung Qualified Code(s): C34.31 - Malignant neoplasm of lower lobe, right bronchus or lung - Discharge Information *PRESCRIPTION DRUG MONITORING PROGRAM REVIEWED*: Yes *COPY OF PRESCRIPTION DRUG MONITORING REPORT IN PATIENT NELLY: Yes Referrals: Finesse Amos [employer] [Primary Care Provider] - Forms: ED Department Discharge Additional Instructions: fentanyl transdermal 12 mcg patch zofran 4 mg ODT follow-up as scheduled small frequent high caloric meals sips of fluids - My Orders Last 24 Hours: My Active Orders 11/18/18 20:45 Sodium Chloride 0.9% [Normal Saline] 1,000 ml IV ASDIRECTED 11/18/18 21:27 EKG 12 Lead [EK] Routine 11/18/18 21:28 EKG Documentation Completion [RC] ASDIRECTED - Assessment/Plan Last 24 Hours: My Active Orders 11/18/18 20:45 Sodium Chloride 0.9% [Normal Saline] 1,000 ml IV ASDIRECTED 11/18/18 21:27 EKG 12 Lead [EK] Routine 11/18/18 21:28 EKG Documentation Completion [RC] ASDIRECTED
[2018-11-18] MEDS ORDERED: LORazepam 2 MG/ML SDV IVPUSH ONE (21:25)
[2018-11-18] MEDS ORDERED: diphenhydrAMINE 50 MG/ML SDV IVPUSH ONE (21:26)
[2018-11-18] MEDS ORDERED: Pantoprazole 40 MG Vial IVPUSH SCH (21:30)
[2018-11-18 23:41] VITALS: BP 106/75
== END 2018-11-18 23:42 | disposition home or self-care (01) ==
LOC: JP.ED 19:32
DX: C34.91 Malignant neoplasm of unspecified part of right bronchus or lung (principal); J44.9 Chronic obstructive pulmonary disease, unspecified; F17.210 Nicotine dependence, cigarettes, uncomplicated; F41.9 Anxiety disorder, unspecified; F32.9 Major depressive disorder, single episode, unspecified; Z88.8 Allergy status to other drugs, medicaments and biological substances; Z79.899 Other long term (current) drug therapy
CPT/HCPCS: 36415; 80053; 82553; 84484; 85025; 93005; 96361; 96374; 96375; 99284; J1170; J2060; J2405; J7030

== ENCOUNTER 2018-11-19 20:53 | Emergency (ER) | payer MEDICARE, MEDICAID ==
[2018-11-19 21:12] VITALS: BP 118/85
[2018-11-19] MEDS ORDERED: HYDROmorphone 1 MG/ML Syringe IVPUSH ONE (21:17)
[2018-11-19] MEDS ORDERED: LORazepam 2 MG/ML SDV IVPUSH ONE (21:18)
--- NOTE | 2018-11-19 21:25 | EDM.PDOC ---
ED HPI GENERAL MEDICAL PROBLEM - General Chief Complaint: Abdominal Pain Stated Complaint: ILLNESS Time Seen by Provider: 11/19/18 20:55 Source of Information: Reports: Patient History Limitations: Reports: No Limitations - History of Present Illness INITIAL COMMENTS - FREE TEXT/NARRATIVE: 52 yo with metastatic lung Cancer presents to ER with ABD pain. Was seen last evening for like symptoms and started on fentanyl patch 12 mcg. patch was placed this AM at 1100. Pain was well managed throughout the day in late afternoon progressively worsened to unmanageable. He was able to eat a half of piece of toast earlier today. - Related Data Allergies Allergy/AdvReac Type Severity Reaction Status Date / Time acetaminophen [From Percocet] Allergy Difficulty Verified 11/19/18 21:06 Breathing bacitracin Allergy Hives Verified 11/19/18 21:06 meperidine HCl [From Demerol] Allergy Difficulty Verified 11/19/18 21:06 Breathing methylprednisolone sodium Allergy Hives Verified 11/19/18 21:06 succinate [From Solu-Medrol] morphine Allergy Difficulty Verified 11/19/18 21:06 Breathing oxycodone HCl [From Percocet] Allergy Difficulty Verified 11/19/18 21:06 Breathing prednisone Allergy Hives Verified 11/19/18 21:06 Home Meds: Home Meds Albuterol [Ventolin HFA] 1 - 2 puff INH Q4H PRN 07/12/18 [History] Tiotropium [Spiriva Handihaler] 18 mcg INH DAILY 07/12/18 [History] Cyclobenzaprine [Flexeril] 10 mg PO BID 10/28/18 [History] Albuterol Sulfate 0.63 mg IH Q6H PRN 11/18/18 [History] fentaNYL [Duragesic] 11/19/18 [History] Past Medical History HEENT History: Reports: Other (See Below) Other HEENT History: dental caries Respiratory History: Reports: COPD, Other (See Below) Other Respiratory History: R lower lobe CA October 2018. Gastrointestinal History: Reports: Other (See Below) Other Gastrointestinal History: esophageal bleed. 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 Psychiatric History: Reports: Anxiety, Depression Oncologic (Cancer) History: Reports: Lung, Other (See Below) Other Oncologic History: hepatic - Infectious Disease History Infectious Disease History: Reports: Chicken Pox - Past Surgical History HEENT Surgical History: Reports: Oral Surgery GI Surgical History: Reports: Appendectomy, Cholecystectomy, Esophageal Dilatation Musculoskeletal Surgical History: Reports: Carpal Tunnel Social & Family History - Tobacco Use Smoking Status *Q: Never Smoker - Caffeine Use Caffeine Use: Reports: None - Living Situation & Occupation Living situation: Reports: with Significant Other ED ROS GENERAL - Review of Systems Review Of Systems: See Below Constitutional: Denies: Fever, Chills Respiratory: Denies: Shortness of Breath Cardiovascular: Denies: Chest Pain GI/Abdominal: Reports: Abdominal Pain, Anorexia. Denies: Constipation, Diarrhea ED EXAM, GI/ABD - Physical Exam Exam: See Below Exam Limited By: No Limitations General Appearance: Alert, WD/WN, Moderate Distress Respiratory/Chest: No Respiratory Distress, Lungs Clear, Chest Non-Tender, Decreased Breath Sounds Cardiovascular: No Murmur, Tachycardia GI/Abdominal Exam: Normal Bowel Sounds, No Distention, Guarding, Tender Neurological: Alert, Oriented Psychiatric: Anxious Skin Exam: Warm, Dry, Intact Course - Vital Signs Last Recorded V/S: Last Vital Signs Temp 37.3 C 11/19/18 21:10 Pulse 114 H 11/19/18 21:10 Resp 14 11/19/18 21:10 BP 118/85 11/19/18 21:10 Pulse Ox 94 L 11/19/18 21:10 - Orders/Labs/Meds Orders: Active Orders 24 hr Category Date Time Status Sodium Chloride 0.9% [Normal Saline] 1,000 ml Med 11/19/18 21:30 Active IV ASDIRECTED Medication Orders Sodium Chloride (Normal Saline) 1,000 mls @ 500 mls/hr IV ASDIRECTED JAIRO Last Admin: 11/19/18 21:38 Dose: 500 mls/hr Meds: Medications Generic Name Dose Route Start Last Admin Trade Name Freq PRN Reason Stop Dose Admin Sodium Chloride 1,000 mls @ 500 mls/hr 11/19/18 21:30 11/19/18 21:38 Normal Saline IV 500 mls/hr ASDIRECTED JAIRO Administration Discontinued Medications Generic Name Dose Route Start Last Admin Trade Name Freq PRN Reason Stop Dose Admin Hydromorphone HCl 1 mg 11/19/18 21:17 11/19/18 21:38 Dilaudid IVPUSH 11/19/18 21:18 1 mg ONETIME ONE Administration Lorazepam 1 mg 11/19/18 21:18 11/19/18 21:38 Ativan IVPUSH 11/19/18 21:19 1 mg ONETIME ONE Administration Departure - Departure Time of Disposition: 22:21 Disposition: Home, Self-Care 01 Condition: Fair Clinical Impression: Abdominal pain Qualifiers: Abdominal location: epigastric Qualified Code(s): R10.13 - Epigastric pain Lung cancer Qualifiers: Laterality: right Lung location: lower lobe of lung Qualified Code(s): C34.31 - Malignant neoplasm of lower lobe, right bronchus or lung - Discharge Information *PRESCRIPTION DRUG MONITORING PROGRAM REVIEWED*: Yes *COPY OF PRESCRIPTION DRUG MONITORING REPORT IN PATIENT NELLY: Yes Instructions: Abdominal Pain, Adult Referrals: Finesse Amos NP [Primary Care Provider] - Forms: ED Department Discharge Additional Instructions: Before starting dilaudid remove Fentanyl patch Dilaudid 2 mg every 6 hours as needed for pain call your surgeon in [place] Tuesday to update on the progression of the pain sips fluid throughout the day with goal of 1 liter - My Orders Last 24 Hours: My Active Orders 11/19/18 21:30 Sodium Chloride 0.9% [Normal Saline] 1,000 ml IV ASDIRECTED - Assessment/Plan Last 24 Hours: My Active Orders 11/19/18 21:30 Sodium Chloride 0.9% [Normal Saline] 1,000 ml IV ASDIRECTED
[2018-11-19] MEDS ORDERED: Sodium Chloride 0.9% 1,000 ML IV SCH (21:30)
== END 2018-11-19 22:42 | disposition home or self-care (01) ==
LOC: JP.ED 20:53
DX: R10.13 Epigastric pain (principal); C34.31 Malignant neoplasm of lower lobe, right bronchus or lung; J44.9 Chronic obstructive pulmonary disease, unspecified; F41.9 Anxiety disorder, unspecified; F32.9 Major depressive disorder, single episode, unspecified; Z88.8 Allergy status to other drugs, medicaments and biological substances; Z88.5 Allergy status to narcotic agent; Z79.899 Other long term (current) drug therapy; Z90.49 Acquired absence of other specified parts of digestive tract
CPT/HCPCS: 96361; 96374; 96375; 99283; J1170; J2060; J7030

== ENCOUNTER 2018-12-08 21:20 | Emergency (ER) | payer MEDICARE, MEDICAID ==
[2018-12-08 21:33] VITALS: BP 116/81
--- NOTE | 2018-12-08 22:51 | CRLCR ---
INDICATION: Abdomen pain, recent feeding tube placed, no bowel movement for 1 week TECHNIQUE: Abdominal radiograph 1 view COMPARISON: 10/28/2018 FINDINGS: Bowel: Dense oral contrast is seen within the ascending colon and proximal transverse colon. Mild nonspecific gaseous distention of the transverse colon and splenic flexure noted. The epigastrium is excluded. Surgical clips are noted in the right upper quadrant from prior cholecystectomy. A percutaneous catheter is seen over the left flank. Feeding tube present with tip in the gastric body. Soft tissue: No evidence of pneumoperitoneum present. No suspicious calcifications noted. Bone: Unremarkable for age. IMPRESSION: 1. Dense oral contrast is seen within the ascending colon and proximal transverse colon. Mild nonspecific gaseous distention of the transverse colon and splenic flexure noted. Dictated by Kingston Kahn MD @ 12/08/2018 10:49:57 PM Dictated by: Kingston Kahn MD @ 12/08/2018 22:50:00 (Electronically Signed)
[2018-12-08] MEDS ORDERED: Magnesium Citrate Solution 296 ML Bottle PO ONE (23:02)
--- NOTE | 2018-12-08 23:17 | EDM.PDOC ---
ED HPI GENERAL MEDICAL PROBLEM - General Chief Complaint: Gastrointestinal Problem Stated Complaint: ILLNESS Time Seen by Provider: 12/08/18 21:53 Source of Information: Reports: Patient History Limitations: Reports: No Limitations - History of Present Illness INITIAL COMMENTS - FREE TEXT/NARRATIVE: This is a lung cancer patient who had a feeding tube placed day before yesterday. He said that he has not had a bowel movement for a week. He takes hydromorphone regularly and says that tends to constipate him. He thinks he may be real full now. This is a frequent problem for him. He hasn't had any feedings through the new tube yet but just flushes of water. Has not been vomiting. Treatments RESIDENT CARE ASSISTANT: Reports: Other (see below) Other Treatments RESIDENT CARE ASSISTANT: unknown abd Pain Score (Numeric/FACES): 10 - Related Data Allergies Allergy/AdvReac Type Severity Reaction Status Date / Time acetaminophen [From Percocet] Allergy Difficulty Verified 12/08/18 21:55 Breathing bacitracin Allergy Hives Verified 12/08/18 21:55 meperidine HCl [From Demerol] Allergy Difficulty Verified 12/08/18 21:55 Breathing methylprednisolone sodium Allergy Hives Verified 12/08/18 21:55 succinate [From Solu-Medrol] morphine Allergy Difficulty Verified 12/08/18 21:55 Breathing oxycodone HCl [From Percocet] Allergy Difficulty Verified 12/08/18 21:55 Breathing prednisone Allergy Hives Verified 12/08/18 21:55 Home Meds: Home Meds Albuterol [Ventolin HFA] 1 - 2 puff INH Q4H PRN 07/12/18 [History] Tiotropium [Spiriva Handihaler] 18 mcg INH DAILY 07/12/18 [History] Albuterol Sulfate 0.63 mg IH Q6H PRN 11/18/18 [History] HYDROcodone Bitartrate [Hysingla ER] 20 mg PO BEDTIME 12/08/18 [History] HYDROmorphone [Dilaudid] 2 mg PO Q6H PRN 12/08/18 [History] Ondansetron [Ondansetron ODT] 4 mg PO Q8H PRN 12/08/18 [History] Past Medical History HEENT History: Reports: Other (See Below) Other HEENT History: dental caries Respiratory History: Reports: COPD, Other (See Below) Other Respiratory History: R lower lobe CA October 2018. Gastrointestinal History: Reports: Other (See Below) Other Gastrointestinal History: esophageal bleed. 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 Feeding tube placed 12/06/18 Psychiatric History: Reports: Anxiety, Depression Oncologic (Cancer) History: Reports: Lung, Other (See Below) Other Oncologic History: hepatic. CA in lymphnodes by right shoulder - Infectious Disease History Infectious Disease History: Reports: Chicken Pox - Past Surgical History HEENT Surgical History: Reports: Oral Surgery GI Surgical History: Reports: Appendectomy, Cholecystectomy, Esophageal Dilatation Musculoskeletal Surgical History: Reports: Carpal Tunnel Social & Family History - Tobacco Use Smoking Status *Q: Current Every Day Smoker Years of Tobacco use: 25 Packs/Tins Daily: 0.2 - Caffeine Use Caffeine Use: Reports: None - Recreational Drug Use Recreational Drug Use: No - Living Situation & Occupation Living situation: Reports: with Significant Other ED ROS GENERAL - Review of Systems Review Of Systems: ROS reveals no pertinent complaints other than HPI. ED EXAM, GI/ABD - Physical Exam Exam: See Below Exam Limited By: No Limitations General Appearance: Alert, No Apparent Distress, Thin Eyes: Bilateral: Normal Appearance Respiratory/Chest: Rhonchi Cardiovascular: Regular Rate, Rhythm GI/Abdominal Exam: Other (There is a feeding tube in the left upper quadrant looks like a peg tube. Bowel sounds are normal. There is a little bit of fullness on the right side of the abdomen. It's nontender.) Extremities: Other (Muscle wasting) Neurological: Alert, Oriented Course - Vital Signs Last Recorded V/S: Last Vital Signs Temp 36.7 C 12/08/18 22:00 Pulse 127 H 12/08/18 22:00 Resp 20 12/08/18 22:00 BP 116/81 12/08/18 22:00 Pulse Ox 96 12/08/18 22:00 - Orders/Labs/Meds Meds: Medications Discontinued Medications Generic Name Dose Route Start Last Admin Trade Name Freq PRN Reason Stop Dose Admin Magnesium Citrate 296 ml 12/08/18 23:02 Citrate Of Magnesia PO 12/08/18 23:03 ONETIME ONE - Radiology Interpretation Free Text/Narrative:: X-ray shows oral contrast in the shawn ascending and transverse colon. Descending colon is pretty much empty. Does not look like a bowel obstruction - Re-Assessments/Exams Free Text/Narrative Re-Assessment/Exam: 12/08/18 23:15 This patient received one half bottle of magnesium citrate. Departure - Departure Time of Disposition: 23:15 Disposition: Home, Self-Care 01 Condition: Fair Clinical Impression: Problem with gastrostomy tube - Discharge Information Referrals: Finesse Amos GLAZE SUPERVISOR [Primary Care Provider] - Additional Instructions: He received one half bottle of magnesium citrate in the emergency room. Give yourself the equivalent of about 12 ounces or 2 glasses of water when you get home. If you're still having problems by noon tomorrow and give yourself the rest of the magnitude exam citrate followed by additional water. Don't start feeding until your bowels have moved.
== END 2018-12-09 00:35 | disposition home or self-care (01) ==
LOC: JP.ED 21:20
DX: K94.20 Gastrostomy complication, unspecified (principal); C34.90 Malignant neoplasm of unspecified part of unspecified bronchus or lung; F17.210 Nicotine dependence, cigarettes, uncomplicated; Z88.5 Allergy status to narcotic agent; Z88.6 Allergy status to analgesic agent; Z90.49 Acquired absence of other specified parts of digestive tract
CPT/HCPCS: 74018; 99283; A9270

== ENCOUNTER 2019-01-04 10:40 | Emergency (ER) | payer MEDICARE, MEDICAID ==
[2019-01-04] MEDS ORDERED: Lactated Ringers 1,000 ML IV ONE (10:54)
--- NOTE | 2019-01-04 11:00 | EDM.PDOC ---
ED HPI GENERAL MEDICAL PROBLEM - General Chief Complaint: Respiratory Problem Stated Complaint: [facility] Time Seen by Provider: 01/04/19 10:50 Source of Information: Reports: Patient, EMS, Old Records History Limitations: Reports: No Limitations - History of Present Illness INITIAL COMMENTS - FREE TEXT/NARRATIVE: 53 yo male with COPD, CA, and a PE presents tx'd with Lovenox presents via EMS for SOB. He took a dose of his oral anti-anxiety medication before EMS' arrival and now his breathing is back to normal. He is on home oxygen. Has not been eating or drinking well. Has a G-tube. Says his mouth is dry and his urine dark. Onset: Today Onset Date: 01/04/19 Onset Time: 10:00 Duration: Minutes:, Resolved Prior to Arrival Quality: Reports: Other (has no chest pain, has his baseline chronic abdominal pain.) Severity: Mild Improves with: Reports: Medication Worsens with: Reports: Other (time, missing doses of his pain meds.) Context: Reports: Other (see HPI) Associated Symptoms: Reports: Loss of Appetite, Malaise, Shortness of Breath ( at times, now better.), Other (chronic tachycardia). Denies: Fever/Chills Treatments AUTOMOTIVE DIAGNOSTIC TECHNICIAN: Reports: Other (see below) (took a dose of his oral benzo) Lower Abdominal Pain Score (Numeric/FACES): 7 - Related Data Allergies Allergy/AdvReac Type Severity Reaction Status Date / Time acetaminophen [From Percocet] Allergy Difficulty Verified 01/04/19 10:43 Breathing bacitracin Allergy Hives Verified 01/04/19 10:43 meperidine HCl [From Demerol] Allergy Difficulty Verified 01/04/19 10:43 Breathing methylprednisolone sodium Allergy Hives Verified 01/04/19 10:43 succinate [From Solu-Medrol] morphine Allergy Difficulty Verified 01/04/19 10:43 Breathing oxycodone HCl [From Percocet] Allergy Difficulty Verified 01/04/19 10:43 Breathing prednisone Allergy Hives Verified 01/04/19 10:43 Home Meds: Home Meds Tiotropium [Spiriva Handihaler] 18 mcg INH DAILY 07/12/18 [History] Albuterol Sulfate 1 - 2 puff IH Q4HR PRN 11/18/18 [History] HYDROmorphone [Dilaudid] 2 mg PO Q6H PRN 12/08/18 [History] Acetaminophen [Tylenol] 650 mg PO Q6HR PRN 01/04/19 [History] Enoxaparin Sodium [Lovenox] 50 mg SQ Q12HR 01/04/19 [History] Gabapentin [Neurontin] 200 mg PO BID 01/04/19 [History] Methadone 5 mg PO ASDIRECTED 01/04/19 [History] Naloxone HCl [Narcan] 1 spray IH ASDIRECTED 01/04/19 [History] Polyethylene Glycol 3350 [MiraLAX] 17 gm PO BID 01/04/19 [History] Sennosides/Docusate Sodium [Senna-S] 1 each PO BID 01/04/19 [History] Sertraline [Zoloft] 25 mg PO BEDTIME 01/04/19 [History] hydrOXYzine pamoate [Vistaril] 25 mg PO Q6H PRN 01/04/19 [History] Past Medical History HEENT History: Reports: Other (See Below) Other HEENT History: dental caries Cardiovascular History: Reports: Other (See Below) Other Cardiovascular History: runs tachy now Respiratory History: Reports: COPD, Other (See Below) Other Respiratory History: R lower lobe CA October 2018. Gastrointestinal History: Reports: Chronic Constipation, Other (See Below) Other Gastrointestinal History: esophageal bleed. 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 Feeding tube placed 12/06/18 [facility] Psychiatric History: Reports: Anxiety, Depression Hematologic History: Reports: Anticoagulation Therapy Oncologic (Cancer) History: Reports: Lung, Other (See Below) Other Oncologic History: hepatic. CA in lymphnodes by right shoulder - Infectious Disease History Infectious Disease History: Reports: Chicken Pox - Past Surgical History HEENT Surgical History: Reports: Oral Surgery Cardiovascular Surgical History: Reports: None Respiratory Surgical History: Reports: Lung Biopsies GI Surgical History: Reports: Appendectomy, Cholecystectomy, Esophageal Dilatation Musculoskeletal Surgical History: Reports: Carpal Tunnel Social & Family History - Tobacco Use Smoking Status *Q: Former Smoker Used Tobacco, but Quit: Yes Month/Year Tobacco Last Used: 01/27/2018 Second Hand Smoke Exposure: No - Caffeine Use Caffeine Use: Reports: None - Recreational Drug Use Recreational Drug Use: No - Living Situation & Occupation Living situation: Reports: with Significant Other ED ROS GENERAL - Review of Systems Review Of Systems: See Below Constitutional: Reports: Malaise, Decreased Appetite HEENT: Reports: Other (dry mouth) Respiratory: Reports: Shortness of Breath (now better) Cardiovascular: Reports: No Symptoms Endocrine: Reports: No Symptoms GI/Abdominal: Reports: Abdominal Pain (chronic) : Reports: Other (dark urine) Musculoskeletal: Reports: No Symptoms Skin: Reports: No Symptoms Neurological: Reports: No Symptoms Psychiatric: Reports: Anxiety (chronic) ED EXAM, GENERAL - Physical Exam Exam: See Below Exam Limited By: No Limitations General Appearance: Alert, WD/WN, No Apparent Distress, Thin Eye Exam: Bilateral Eye: Normal Inspection Ears: Normal External Exam, Normal Canal, Hearing Grossly Normal Ear Exam: Bilateral Ear: Auricle Normal, Canal Normal Nose: Normal Inspection, No Blood Throat/Mouth: Normal Lips, Normal Oropharynx, Normal Voice, No Airway Compromise , Other (dry oral mucosa) Head: Atraumatic, Normocephalic Neck: Normal Inspection Respiratory/Chest: No Respiratory Distress, Lungs Clear, No Accessory Muscle Use , Decreased Breath Sounds Cardiovascular: Regular Rate, Rhythm, No Edema, Tachycardia GI/Abdominal: Normal Bowel Sounds, Soft, No Distention, Tender (diffuse). No: Distended Extremities: Normal Inspection, Normal Range of Motion, Non-Tender, No Pedal Edema Neurological: Alert, Oriented, CN II-XII Intact, Normal Cognition, No Motor/ Sensory Deficits Psychiatric: Normal Affect, Normal Mood Skin Exam: Warm, Dry, Intact, Normal Color, No Rash Course - Vital Signs Text/Narrative:: Reported later in his ER stay some intermittent L testicle pain, testicle itself not tender to touch, for the past week. Will get a UA to see if there is any hematuria to suggest a kidney stone. Last Recorded V/S: Last Vital Signs Temp 36.1 C 01/04/19 10:44 Pulse 115 H 01/04/19 12:13 Resp 22 H 01/04/19 12:13 BP 127/84 01/04/19 12:13 Pulse Ox 92 L 01/04/19 12:13 - Orders/Labs/Meds Orders: Active Orders 24 hr Category Date Time Status Sodium Chloride 0.9% [Normal Saline] 1,000 ml Med 01/04/19 12:10 Active IV .BOLUS Medication Orders Sodium Chloride (Normal Saline) 1,000 mls @ 1,000 mls/hr IV .BOLUS ONE Stop: 01/04/19 13:09 Labs: Laboratory Tests 01/04/19 01/04/19 Range/Units 10:54 12:15 Sodium 135 L (140-148) mmol/L Potassium 4.3 (3.6-5.2) mmol/L Chloride 95 L (100-108) mmol/L Carbon Dioxide 34 H (21-32) mmol/L Anion Gap 10.3 (5.0-14.0) mmol/L BUN 11 (7-18) mg/dL Creatinine 0.8 (0.8-1.3) mg/dL Est Cr Clr Drug Dosing 63.59 mL/min Estimated GFR (MDRD) > 60 (>60) Glucose 108 H (74-106) mg/dL Calcium 10.1 (8.5-10.1) mg/dL Urine Color Yellow Urine Appearance Clear Urine pH 8.0 (4.5-8.0) Ur Specific [place] 1.015 (1.008-1.030) Urine Protein Negative (NEGATIVE) mg/dL Urine Glucose (UA) Normal (NEGATIVE) mg/dL Urine Ketones Negative (NEGATIVE) mg/dL Urine Occult Blood Negative (NEGATIVE) Urine Nitrite Negative (NEGAITVE) Urine Bilirubin Negative (NEGATIVE) Urine Urobilinogen Normal (NORMAL) mg/dL Ur Leukocyte Esterase Negative (NEGATIVE) Urine RBC 0-5 (0-5) Urine WBC 0-5 (0-5) Ur Epithelial Cells Rare Amorphous Sediment Few Urine Bacteria Few Urine Mucus Not seen Meds: Medications Generic Name Dose Route Start Last Admin Trade Name Freq PRN Reason Stop Dose Admin Sodium Chloride 1,000 mls @ 1,000 mls/hr 01/04/19 12:10 Normal Saline IV 01/04/19 13:09 .BOLUS ONE Discontinued Medications Generic Name Dose Route Start Last Admin Trade Name Freq PRN Reason Stop Dose Admin Hydromorphone HCl 2 mg 01/04/19 11:07 01/04/19 11:15 Dilaudid PO 01/04/19 11:08 2 mg NOW STA Administration Lactated Ringer's 1,000 mls @ 1,000 mls/hr 01/04/19 10:54 01/04/19 11:05 Ringers, Lactated IV 01/04/19 11:53 1,000 mls/hr BOLUS ONE Administration Departure - Departure Time of Disposition: 13:40 Disposition: Home, Self-Care 01 Condition: Fair Clinical Impression: Dehydration, Anxiety - Discharge Information *PRESCRIPTION DRUG MONITORING PROGRAM REVIEWED*: No *COPY OF PRESCRIPTION DRUG MONITORING REPORT IN PATIENT NELLY: No Instructions: Rehydration, Adult Referrals: PCP,None [Primary Care Provider] - Forms: ED Department Discharge Additional Instructions: Continue your current meds. Recheck with your provider fifi. Return as needed. - My Orders Last 24 Hours: My Active Orders 01/04/19 12:10 Sodium Chloride 0.9% [Normal Saline] 1,000 ml IV .BOLUS - Assessment/Plan Last 24 Hours: My Active Orders 01/04/19 12:10 Sodium Chloride 0.9% [Normal Saline] 1,000 ml IV .BOLUS
[2019-01-04] MEDS ORDERED: HYDROmorphone 2 MG Tab PO STA (11:07)
[2019-01-04] MEDS ORDERED: Sodium Chloride 0.9% 1,000 ML IV ONE (12:10)
[2019-01-04 12:15] VITALS: BP 127/84; PULSE 115
== END 2019-01-04 16:14 | disposition home or self-care (01) ==
LOC: JP.ED 10:40
DX: E86.0 Dehydration (principal); F41.9 Anxiety disorder, unspecified; F32.9 Major depressive disorder, single episode, unspecified; J44.9 Chronic obstructive pulmonary disease, unspecified; C34.90 Malignant neoplasm of unspecified part of unspecified bronchus or lung; Z98.890 Other specified postprocedural states; Z90.49 Acquired absence of other specified parts of digestive tract; Z88.5 Allergy status to narcotic agent; Z88.8 Allergy status to other drugs, medicaments and biological substances; Z87.891 Personal history of nicotine dependence
CPT/HCPCS: 36415; 80048; 81001; 96360; 96361; 99285; A9270; J7030; J7120; 99284